=== PATIENT | female | born 1950 | race Caucasian/White ===

== ENCOUNTER → 2017-12-01 | Outpatient (CLI) | payer MEDICARE ==
[~2017-12-01] MED LIST: CIPR500S2 PO; DEXA4TAB PO; HYDR-2442 PO; LEVO125T PO; LIDO5CRE14 TP; LORA-445 PO; ONDA8TAB12 PO; POTA8TAB PO; TRIA1CAP3 PO; VERA120T74 PO
== END | disposition home or self-care (01) ==
LOC: ROC 09:48
PROVIDERS: ATTEND Radiology Radiation Oncology
DX: C50.412 Malignant neoplasm of upper-outer quadrant of left female breast (principal)
CPT/HCPCS: G0463

== ENCOUNTER → 2018-06-15 | Outpatient (CLI) | payer MEDICARE, OTHER | END | disposition home or self-care (01) | LOC: ROC 08:01 | PROVIDERS: ATTEND Radiology Radiation Oncology | DX: C50.412 Malignant neoplasm of upper-outer quadrant of left female breast (principal) | CPT/HCPCS: G0463 ==

== ENCOUNTER → 2018-06-22 | Outpatient (CLI) | payer MEDICARE, OTHER | END | disposition home or self-care (01) | LOC: CFH 15:07 | PROVIDERS: ATTEND Radiology Radiation Oncology | DX: C50.412 Malignant neoplasm of upper-outer quadrant of left female breast (principal); Z85.3 Personal history of malignant neoplasm of breast | CPT/HCPCS: 77065 ==

== ENCOUNTER 2018-11-29 07:10 | Outpatient (CLI) | payer MEDICARE, OTHER ==
[~2018-11-29 07:10] MED LIST changes: -VERA120T74 PO; +VERA120T8 PO
== END 2018-11-29 23:59 | disposition home or self-care (01) ==
LOC: ROC 07:10
PROVIDERS: ATTEND Radiology Radiation Oncology
DX: C50.412 Malignant neoplasm of upper-outer quadrant of left female breast (principal)
CPT/HCPCS: G0463

== ENCOUNTER 2019-09-18 10:29 | Outpatient (CLI) | payer MEDICARE, OTHER | END 2019-09-18 23:59 | disposition home or self-care (01) | LOC: CFH 10:29 | PROVIDERS: ATTEND Pathology Hematology | DX: M81.0 Age-related osteoporosis without current pathological fracture (principal); C50.412 Malignant neoplasm of upper-outer quadrant of left female breast; C50.919 Malignant neoplasm of unspecified site of unspecified female breast; Z13.820 Encounter for screening for osteoporosis | CPT/HCPCS: 77080 ==

== ENCOUNTER 2020-01-22 08:16 | Outpatient (CLI) | payer MEDICARE, OTHER | END 2020-01-22 23:59 | disposition home or self-care (01) | LOC: ROC 08:16 | PROVIDERS: ATTEND Radiology Radiation Oncology | DX: C50.412 Malignant neoplasm of upper-outer quadrant of left female breast (principal) | CPT/HCPCS: G0463 ==

== ENCOUNTER 2021-01-14 07:58 | Outpatient (CLI) | payer MEDICARE, OTHER ==
[~2021-01-14 07:58] MED LIST changes: -HYDR-2442 PO; +HYDR-3565 PO
== END 2021-01-14 23:59 | disposition home or self-care (01) ==
LOC: ROC 07:58
PROVIDERS: ATTEND Radiology Radiation Oncology
DX: Z08 Encounter for follow-up examination after completed treatment for malignant neoplasm (principal); Z85.3 Personal history of malignant neoplasm of breast
CPT/HCPCS: G0463